=== PATIENT | female | born 1980 ===

== ENCOUNTER 2024-03-12 08:37 | Day surgery (SDC) | payer BC, SELFPAY ==
[2024-03-12 08:54] VITALS: BMI 43.3
[2024-03-12] MEDS: LACTATED RINGERS 1000 ML 1,000 ML 100 ML IV (08:55)
[2024-03-12 09:05] VITALS: BP 161/79; PULSE 79; RESP 16; TEMP 36.3; O2SAT 100
[2024-03-12] MEDS: SODIUM CHLORIDE 0.9 % (FLUSH) 10 ML SYRINGE IVF (09:18)
[2024-03-12 09:25] LABS: Ur HCG Qualitative* Negative (Negative)
[2024-03-12 09:26] LABS: Hemoglobin* 14.2 gm/dL (12.0-16.0)
--- NOTE | 2024-03-12 09:30 | W.PM.H&PU ---
History & Physical Update History & Physical Update H&P Reviewed and patient assessed: No changes noted H&P Updates: Irma is seen in pre-op prior to planned hysteroscopy, D&C and endometrial ablation. Prior EMB was benign. UPT negative today. We reviewed the risks of surgery in detail including bleeding, infection, damage to surrounding structures, abnormal vaginal discharge for up to 3 months postprocedure. With regard to contraception, she is only sexually active with one female partner () counseled on condoms if ever needed in the future. She expressed understanding and is agreeable to plan.
--- NOTE | 2024-03-12 10:23 | W.ANESCHARGE ---
Anesthesia Charges Start Date/Time Anesthesia Start Date: 03/12/24 Anesthesia Start Time: 09:55 Stop Date/Time Anesthesia Stop Date: 03/12/24 Anesthesia Stop Time: 10:55
[2024-03-12] MEDS: BUPIVACAINE 0.5% 30 ML INJECTION (10:30)
--- NOTE | 2024-03-12 10:48 | W.PM.GYNPROC ---
Procedure Note Time Seen by Provider: 10:52 Date of procedure: 03/12/24 Will [facility] bill your pro fee for this procedure?: Yes Pre-op diagnosis: Abnormal uterine bleeding Procedure: Hysteroscopy, dilation and curettage, endometrial ablation Anesthesia: MAC Complications: None Surgeon: Asha Peace MD Estimated blood loss (mL): 5 IV fluids (mL): 500 Urine Output (mL): 150 Pathology: specimen obtained, sent to pathology Condition: stable Disposition: same day Findings: Proliferative appearing endometrium Normal endometrial contour and bilateral tubal ostia Procedure Description: After obtaining informed consent, the patient was taken to the operating room where she received monitored anesthesia care. She was prepared and draped in the normal sterile fashion, in the dorsal lithotomy position. An open-sided bivalve speculum was introduced into the vagina and the cervix visualized. The anterior lip of the cervix was grasped with a single-tooth tenaculum for traction. A paracervical block was then administered using a total of 20 mL of 0.5% Marcaine. The uterus was gently sounded. Sound length was 8.5 cm. The cervix length was determined to be 4 cm using Hegar dilators, yielding a uterine cavity length of 4.5 cm. The cervix was gently dilated to a #8 Hegar dilator. A hysteroscope was then advanced under direct visualization through the cervix into the uterine cavity. Sterile normal saline was used as distending medium. The uterine cavity was carefully inspected with the findings noted above. Circumferential sampling performed. The hysteroscope was then removed. The America device was then set to a cavity length of 4.5 cm, inserted through the cervical os into the uterine cavity to the level of the fundus, and deployed. The device was sealed against the cervix. The safety checks were then passed x2 and the 2-minute treatment cycle initiated. Following completion of the treatment cycle, the America device was removed. The hysteroscope was advanced again into the uterine cavity and the uterine cavity inspected. A good ablation was noted from the internal os to fundus and to the cornua bilaterally. Pictures were taken for documentation purposes. The hysteroscope was removed. The tenaculum was removed. There was little bleeding from the tenaculum site, which was controlled with direct pressure sponge stick. All instruments were then removed. The patient tolerated the procedure well. Sponge, lap, needle, and instrument counts reported as correct x2. Surgical debrief completed, path is endometrial curettings. The patient was taken to the recovery room awake in a stable condition.
[2024-03-12 10:55] VITALS: BP 149/90; PULSE 73; RESP 16; TEMP 36.7; O2SAT 97
[2024-03-12 11:00] VITALS: BP 169/108; PULSE 72; RESP 16; O2SAT 97
[2024-03-12 11:15] VITALS: BP 170/98; BP 175/102; PULSE 74; PULSE 75; RESP 16; O2SAT 97
[2024-03-12 11:30] VITALS: BP 174/100; PULSE 75; RESP 16; O2SAT 97
== END 2024-03-12 11:50 | disposition home or self-care (01) ==
LOC: OR 08:38
PROVIDERS: PCP Physician Assistant; Visit Provider Obstetrics & Gynecology
PROC: 0UF98ZZ Fragmentation in Uterus, Via Natural or Artificial Opening Endoscopic (ICD-10-PCS; CPT 58563; principal; 2024-03-12 09:45)
DX: N93.8 Other specified abnormal uterine and vaginal bleeding (principal); E11.9 Type 2 diabetes mellitus without complications
CPT/HCPCS: 58563; 00952; 36415; 81025; 82962; 85018; 86850; 86900; 86901; 88305; C1782; J0665; J1100; J1885; J2250; J2405; J2704; J3010; J7120